=== PATIENT | female | born 1940 | race African-American/Black ===

== ENCOUNTER 2024-12-15 12:24 | Outpatient (REF) | payer MEDICARE, OTHER, SELFPAY ==
[2024-12-15 12:52] LABS: MANUAL DIFF FLAG NO
[2024-12-15 14:20] LABS: Basophils Absolute Auto 0.1 X10*3/uL (0.0-0.2); Basophils Percent Auto 0.9 % (0-2); Eosinophils Absolute Auto 0.1 X10*3/uL (0.0-0.4); Eosinophils Percent Auto 1.7 % (0-4); Hematocrit 34.6 % (37.0-47.0); Hemoglobin 11.3 g/dl (12.0-16.0); Imm Gran Abs Auto 0.02 X10*3/uL (0.00-0.03); Imm Gran Pct Auto 0.3 % (0.0-0.4); Lymphocytes Absolute Auto 1.5 X10*3/uL (1.2-4.9); Lymphocytes Percent Auto 23.4 % (20-40); Mean Corpuscular HGB Conc 32.7 g/dl (31.0-35.0); Mean Corpuscular Volume 91.8 fL (80.0-98.0); Mean Platelet Volume 11.4 fL (9.4-12.3); Monocytes Absolute Auto 0.6 X10*3/uL (0.1-1.2); Monocytes Percent Auto 9.7 % (2-11); Neutrophils Absolute Auto 4.1 x10*3/uL (2.0-8.3); Platelet Count 195 X10*3/uL (160-400); Red Blood Count 3.77 X10*6/uL (4.20-5.50); Red Cell Distribution Width 14.6 % (11.0-16.0); White Blood Count 6.4 X10*3/uL (4.8-10.8)
[2024-12-15 14:49] LABS: Anion Gap 9 (12-20); Blood Urea Nitrogen 23 mg/dL (9-16); Calcium 8.9 mg/dL (8.4-10.2); Carbon Dioxide 28 mmol/L (22-29); Chloride 110 mmol/L (96-108); Estimated Glomerular Filt Rate > 60; Glucose Random 125 mg/dL (60-115); Potassium 4.4 mmol/L (3.3-5.1); Sodium 143 mmol/L (135-145)
--- OUTSIDE RECORDS SUMMARY | 2024-12-15 14:50 | XMS_ITS | Clinical Summary ---
Author Organization [facility] Address [address] [place] [address] Care Team Providers Care Seamless Tube Roller Name Role Phone Teresa Pineda MD Primary Care Provider + Social History Tobacco Use Types Packs/Day Years Used Date Smoking Tobacco: Never Assessed Sex and Gender Information Value Date Recorded Sex Assigned at Not on file Gender Identity Not on file Sexual Orientation Not on file Plan of Treatment Health Maintenance Due Date Last Done Comments COVID-19 Vaccine (#1) 1939 Depression Screening 1951 Preventative Health Evaluation 1957 DTap / Tdap / Td (1 - Tdap) 1958 Shingrix-Zoster Vaccine (1 of 2) 1989 Fall Risk Assessment 2004 Osteoporosis Screening (DEXA Scan) 2004 RSV Adult > 60+ Yrs or (1 - 1-dose 75+ series) 2014 Pneumococcal Vaccine (3 of 3 - PPSV23 or PCV20) 06/08/2020 06/08/2015, 05/08/2003 Influenza Vaccine (Season Ended) 2025 04/04/2020, 05/29/2017, 04/11/2016, Additional history exists Hepatitis B Vaccines Aged Out No long er eligible based on patient's age to complete this topic RSV Ped < 20 months Aged Out No longe r eligible based on patient's age to complete this topic Care Teams Seamless Tube Roller Relationship Specialty Start Date End Date Teresa Pineda MD [address] [phone] PCP - General Internal Medicine 11/08/20
[2024-12-15 14:59] LABS: Erythrocyte Sedimentation Rate 7 MM/HR (0-20)
== END 2024-12-15 12:25 | disposition home or self-care (01) ==
LOC: HO.LAB 12:24
PROVIDERS: PCP Internal Medicine; Visit Provider Psychiatry & Neurology Neurology
DX: M31.6 Other giant cell arteritis (principal)
CPT/HCPCS: 36415; 80048; 85025; 85652

== ENCOUNTER 2025-01-24 13:43 | Outpatient (AMB) | payer MEDICARE, OTHER, SELFPAY ==
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
[2025-01-24 14:25] VITALS: BP 150/76; PULSE 63
--- OUTSIDE RECORDS SUMMARY | 2025-01-24 14:25 | XMS_ITS | Clinical Summary ---
Author Organization [facility] Address [address] [place] [address] Care Team Providers Care Environmental Advisor Name Role Phone Teresa Pineda MD Primary [...] or PCV20) 06/08/2020 06/08/2015, 05/08/2003 Influenza Vaccine (#1) 2025 0, 05/29/2017, 04/11/2016, Additional history exists Hepatitis B Vaccines Aged Out No long er eligible based on patient's age to complete this topic RSV Ped < 20 months Aged Out No longe r eligible based on patient's age to complete this topic Care Teams Environmental Advisor Relationship Specialty Start Date End Date Teresa Pineda MD [address] [phone] PCP - General Internal Medicine 11/08/20
--- OUTSIDE RECORDS SUMMARY | 2025-01-24 14:25 | XMS_ITS | Clinical Summary ---
Author Organization [address] [facility] Address [address] [place] [address] Phone Care Team Providers Care Dryerman/Woman Name Role Phone Agus Dunbar MD Primary Care Provider [phone] Allergies Active Allergy Reactions Criticality Noted Date Comments Amoxicillin Other 08/01/2005 Chest pain Metronidazole 07/08/2024 Metronidazole Hcl Diarrhea 08/01/2005 Cramping, mouth sores - to pills only - no issues with metrogel Naproxen Sodium 04/01/2006 Oxycodone-Acetaminophen 07/06/2006 Other Reaction(s): Rash/Dermatitis Penicillin V Potassium Other 08/01/2005 Chest pain Sulfamethoxazole-Trimethoprim 2005 Other Reaction(s): Hives/Urticaria Medications ACETAMINOPHEN ORAL Take by mouth. As needed Active diclofenac (VOLTAREN) 1 % topical gel Apply 2 g topically daily as needed (pain). 3 Active lancing device (BD LANCET DEVICE MIS) Use to check blood sugars daily for DM, E11.9 2 Active latanoprost (Xalatan) 0.005 % ophthalmic solution 1 Drop at bedtime.Both eyes Active metFORMIN (GLUCOPHAGE) 500 mg tablet Take 1 tablet (500 mg total) by mouth 1 (one) time each day with breakfast. 3 Active UNABLE TO FIND Apply 1 Device topically 1 (one) time. Mastectomy bra 2 Active amLODIPine (NORVASC) 5 mg tabletIndications :Essential (primary) hypertension TAKE 1 TABLET BY MOUTH EVERY DAY 90 tablet 1 5 Active lisinopril (PRINIVIL,ZESTRIL ) 40 mg tabletIndications :Essential (primary) hypertension Take 1 tablet (40 mg total) by mouth 1 (one) time each day. 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 200 each 1 5 Active timolol (TIMOPTIC) 0.5 % ophthalmic solution 5 Active famotidine (PEPCID) 20 mg tablet TAKE 1 TABLET BY MOUTH TWICE A DAY 180 tablet 1 5 Active OneTouch Ultra Test test strip USE TO TEST BLOOD SUGARS TWICE A DAY 100 strip 2 5 Active Active Problems Problem Noted Date Diagnosed Date Anemia 03/31/2024 Decreased appetite 03/31/2024 Diverticulosis 03/31/2024 Hemorrhoids 03/31/2024 Kidney stones 03/31/2024 Weight loss 03/31/2024 Cervical radiculopathy 12/11/2020 Overview (03/31/2024): Evaluation with [facility] by Dr. Sanchez 11/2020; physical therapy and traction, oral medication trial prior to considering surgical intervention Allergic rhinitis 10/19/2018 Bilateral nephrolithiasis 07/20/2017 Overview (03/31/2024): Right kidney: three 4mm stones. Left Kidney 5-6 stones 4-7mm. Largest is 7mm left lower kidney. ESWL offered 05/30/17 by [facility] (Keven ROCHE), pt declined. More stone issues 10/2019, ED visit 03/2020 Gross hematuria, 7mm right renal stone [facility] visit 01/16/2021 Ptosis, left eyelid 08/15/2016 Grief 04/11/2016 Colon polyp 09/05/2014 Left-sided trigeminal neuralgia 05/09/2011 Microalbuminuria 10/10/2010 IBS (irritable bowel syndrome) 07/15/2010 Spinal stenosis in cervical region 06/19/2010 Overview (03/31/2024): MRI 10/27/2008:Mild central spinal stenosis at multiple levels. Minimal cord compression at C5-6. Moderate osteophytic narrowing of both C6 foramina; mild to moderate narrowing of the left C7 foramen. C6-7 right lateral disc herniation-osteophyte complex causing severe right C7 foraminal stenosis GERD (gastroesophageal reflux disease) 0 H. pylori infection 07/05/2009 Overview (03/31/2024): PCN allergic. 12/2015 clarithromycin 500 bid, flagyl 500 bid, omeprazole 20 bid x14d Hyperlipidemia 10/01/2005 Glaucoma 10/01/2005 Overview (03/31/2024): Dr. Ponce Essential hypertension, benign 08/01/2005 Type 2 diabetes mellitus wit h renal manifestations ([facility] V24, [facility] V28) 08/01/2005 Encounters Date Type Department Care Team Description 11/16/2024 11:00 AM EDT [facility] [address] [place] [address] Agus Dunbar MD Type 2 diabetes mellitus with diabetic microalbuminuria, without long-term current use of insulin ([facility] V24, [facility] V28) (Primary Dx); Essential hypertension, benign; Chronic nonintractable headache, unspecified headache type; Immunization due 11/09/2024 Telephone Pediatrics - [address] [address] Agus Dunbar MD Medication Problem from Last 3 Months Immunizations Name Administration Dates Next Due Influenza Quadravalent, MDCK , 0.5ml, with preservative (Flucelvax) 6mo and older 05/29/2017 Influenza trivalent, 0.5mL ( Fluad) 65yo and older 05/11/2024 Influenza trivalent, 0.5mL ( Fluzone High-dose) 65yo and older 04/17/2022,03/18/2021,04/04/2020,05/07 Influenza trivalent, with pr eservative (Fluzone; Afluria) 6mo and older 04/11/2016,03/16/2015,04/14/2014,02/28,03/08/2012,03/12/2011,04/03/2010 ,03/23/2009,05/11/2008,03/16/2007,03/22,05/02/2005 Moderna SARS-CoV-2 COVID-19, mRNA, LNP-S, preservative free 12/27/2021,06/05/2021,11/14/2020,10/16 Pneumococcal conjugate 13 va lent (Prevnar 13, PCV13) 2mo and older 06/08/2015 Pneumococcal conjugate 20 va lent (Prevnar 20, PCV 20) 2mo and older 11/16/2024 Pneumococcal polysaccharide 23 valent (Pneumovax 23) 2yo and older 05/08/2003 Td Tetanus diptheria (Tdvax) 7yo and older 08/23/2008 Tdap Tetanus diptheria acell ular pertussis (Boostrix; Adacel) 7yo and older 11/16/2024 Surgical History Surgery Date Site/Laterality Comments COLONOSCOPY 07/01/00 & 03/26 PROCEDURE: HISTORICAL COLONOSCOPY; COMMENT: Up to cecum, diverticulosis, repeat 2015 BREAST LUMPECTOMY 06/19/2008 PROCEDURE: HISTORICAL BREAST LUMPECTOMY; COMMENT: infil ductal, right, 9 neg axillary nodes. ESOPHAGOGASTRODUODENOSCOPY 04/16/2005 PROCEDURE: [place] EGD TRANSORAL BIOPSY SINGLE/MULTIPLE; COMMENT: gastric polyp, caprice test + (did not tolerate treatment) OTHER SURGICAL HISTORY PROCEDURE: [place] RADIAL KERATOTOMY COLONOSCOPY 09/04/14 Dr Elder PROCEDURE: HISTORICAL COLONOSCOPY; COMMENT: 2mm cecum polypectomy UPPER GASTROINTESTINAL ENDOSCOPY 03/14/16 Dr Card PROCEDURE: UPPER GI ENDOSCOPY/EXAM; COMMENT: normal PARTIAL HYSTERECTOMY 1969 PROCEDURE: NJ SUPRACERVICAL ABDL HYSTER W/WO RMVL TUBE OVARY; COMMENT: ovaries are present on sonogram 2008 BREAST BIOPSY PROCEDURE: BX BREAST; PERC NEEDLE CORE W/IMAG GUID; COMMENT: RT-HX OF RT BREAST CANCER COLONOSCOPY 08/07/2021 PROCEDURE: HISTORICAL COLONOSCOPY; COMMENT: diverticulosis Medical History Medical History Date Comments H. pylori infection 07/05/2009 DX:H. pylori infection Colon polyp 09/05/2014 DX:Colon polyp Ptosis, left eyelid 08/15/2016 DX:Ptosis, l eft eyelid Bilateral nephrolithiasis 07/20/2017 DX:Anton ateral nephrolithiasis; COMMENT: Right kidney: three 4mm stones. Left Kidney 5-6 stones 4-7mm. Largest is 7mm left lower kidney. ESWL offered 05/30/17 by [facility] ([facility]), pt declined. Microalbuminuria 10/10/2010 DX:Microalbumin uria Type 2 diabetes mellitus wit h renal manifestations (CMS/HCC V24, CMS/HCC V28) 08/01/2005 DX:Type 2 diabetes mellitus with renal manifestations ([facility]) Spinal stenosis in cervical region 06/19/2010 DX:Spinal stenosis in cervical region; COMMENT: MRI 10/27/2008:Mild central spinal stenosis at multiple levels. Minimal cord compression at C5-6. Moderate osteophytic narrowing of both C6 foramina; mild to moderate narrowing of the left C7 foramen. 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; Cytoxan/Taxotere started 10/05/06 Glaucoma 10/01/2005 DX:Glaucoma GERD (gastroesophageal reflux disease) 0 DX:GERD (gastroesophageal reflux disease) Essential hypertension, benign 08/01/2005 D X:Essential hypertension, benign Allergic rhinitis 10/19/2018 DX:Allergic rh initis Hyperlipidemia 10/01/2005 DX:Hyperlipidemi a Solitary cyst of breast DX:Solit vi cyst of breast Malignant neoplasm of breast (female), unspecified site R, '06 DX:Malignant neoplasm of radha ast (female), unspecified site; COMMENT: T1cN0 Grade 3, ER-,[place]-, HER-2/jarad neg; cytoxan taxotere x4 Anemia DX:Anemia Weight loss DX:Weight loss Decreased appetite DX:Decreased appetite Kidney stones DX:Kidney stones Depressive disorder DX:Depressiv e disorder Diverticulosis DX:Diverticulosi s Hemorrhoids DX:Hemorrhoids Anemia DX:Anemia Liver lesion DX:Liver lesion Family History Medical History Relation Name Comments Colon cancer Brother 1 brother colon c a > 70 Colon cancer Sister 1 colon ca 60's, cataract Blindness Neg Hx Glaucoma Neg Hx Macular degeneration Neg Hx Strabismus Neg Hx Relation Name Status Comments Brother 1 Alive prostate ca & a s of 69 he has colon cancer Brother 2 pancreatic canc er Brother 3 stomach CA Brother 4 Alive diabetes Father pancreatic canc er Mother Alzheimers Sister 1 Alive colon CA at age 60's Sister 2 Alive had colon cance r resected age -60 Social History Tobacco Use Types Packs/Day Years Used Date Smoking Tobacco: Never Smokeless Tobacco: Never Tobacco Cessation:Counseling Given: Not Answered Alcohol Use Standard Drinks/Week Comments No 0 (1 standard drink = 0.6 oz pur e alcohol) Comments No Sex and Gender Information Value Date Recorded Sex Assigned at Not on file Legal Sex Female 3:41 AM EST Gender Identity Not on file Sexual Orientation Not on file Obstetrics History Para Term AB IAB SAB Ectopic Multiple Livin g Live Births 15 8 4 4 7 1 1 1 4 4 Date Outcome GA Total Labor Labor/2nd/3rd Weight Sex Type Anes PTL Faith A1 A5 Name Clin IAB Ectopic Molar Molar Molar Molar SAB Term M Vag-S pont Living Term F Vag-S pont Living Term F Vag-S pont Living Term M Vag-S pont Living Last Filed Vital Signs Vital Sign Reading Time Taken Comments Blood Pressure 112/50 11/16/2024 10:54 AM EDT Pulse 76 11/16/2024 10:54 AM EDT Temperature 36.7 C (98 F) 05/28/2024 4:11 PM EST Respiratory Rate 14 09/26/2024 11:37 AM EDT Oxygen Saturation 97% 08/26/2024 10:16 AM EST Inhaled Oxygen Concentration - - Weight 47 kg (103 lb 9.6 oz) 11/16/2024 10:54 AM EDT Height 154.9 cm (5' 1 ) 09/26/2024 11:37 AM EDT Body Mass Index 19.58 09/26/2024 11:37 AM EDT Plan of Treatment Upcoming Encounters Date Type Department Care Team (Late st Contact Info) Description 01/31/2025 2:00 PM EDT [facility] [address] [place] [address] Agus Dunbar MD [address] [place] [address] Health Maintenance Due Date Last Done Comments Diabetes: Annual Foot Exam 1950 Hepatitis A Vaccines (1 of 2 - Risk 2-dose series) 1958 Zoster Vaccines (1 of 2) 1958 Hepatitis B Vaccines (1 of 3 - Risk 3-dose series) 1999 RSV Immunization Adult Patients (1 - 1-dose 75+ series) 2014 Medicare Annual Wellness Visit 04/20/2024 04/20/2023 Depression Screening 06/22/2024 04/20/2023 Diabetes: Annual Urine Albumin-Creatinine Ratio (uACR) 12/15/2024 12/16/2023 COVID-19 Vaccine (6 - Moderna risk season) 2025 07/16/2024, 12/27/2021, 06/05/2021, Additional history exists Influenza Vaccine (#1) 2025 , 04/17/2022, 03/18/2021, Additional history exists Diabetes: Blood Sugar Control Test (HGBA1C) 03/02/2025 08/30/2024, 05/11/2024, 12/14/2023, Additional history exists Diabetes: Annual GFR (Glomerular Filtration Rate) 05/11/2025 05/11/2024, 01/07/2024, 01/07/2024, Additional history exists Falls Risk Assessment 05/11/2025 05/11/2024, 023 Hypertension/CHF/CAD Annual BMP Blood Test 05/11/2025 05/11/2024, 01/07/2024, 01/07/2024, Additional history exists Social Influencers of Health Screening 05/11/2025 05/11/2024 Diabetes: Annual Retina Eye Exam 10/12/2025 10/12/2024 Osteoporosis Screening (Bone Density Screening) 11/04/2028 11/05/2023, 11/05/2023, 01/07/2018 Cholesterol Screening (Lipid Panel) 05/11/2029 05/11/2024, 12/14/2023, 12/14/2023 DTaP,Tdap,and Td Vaccines (3 - Td or Tdap) 11/16/2034 11/16/2024, 08/23/2008 Pneumococcal Vaccine: 50+ Years Completed 11/16/2024, 06/08/2015, 05/08/2003 HIB Vaccines Aged Out No longer eligi ble based on patient's age to complete this topic HPV Vaccines Aged Out No longer eligi ble based on patient's age to complete this topic IPV Vaccines Aged Out No longer eligi ble based on patient's age to complete this topic MMR Vaccines Aged Out No longer eligi ble based on patient's age to complete this topic Meningococcal ACWY Vaccine Aged Out N o longer eligible based on patient's age to complete this topic Meningococcal B Vaccine Aged Out No l onger eligible based on patient's age to complete this topic RSV Immunization Patients Under 20 months Aged Out No longer eligible based on patient's age to complete this topic Varicella Vaccines Aged Out No longer eligible based on patient's age to complete this topic Procedures Procedure Name Priority Date/Time Associated Diagnosis Comments EXTERNAL CLINICAL LAB 12/16/2024 HEMOGLOBIN A1C Routine 08/30/2024 11:33 AM EDT Type 2 diabetes mellitus with diabetic microalbuminuria, without long-term current use of insulin ([facility] V24, [facility] V28) COMPREHENSIVE METABOLIC PANEL Routine 05/11/2024 1:54 PM EST Type 2 diabetes mellitus with diabetic microalbuminuria, without long-term current use of insulin (CMS/HCC V24, CMS/[facility] V28) LIPID PANEL WITH REFLEX TO DIRECT LDL Routine 05/11/2024 1:54 PM EST Type 2 diabetes mellitus with diabetic microalbuminuria, without long-term current use of insulin ([facility] V24, [facility] V28) URINE ALBUMIN CREATININE RATIO Routine 12/16/2023 DXA BONE DENSITY STUDY 1+ SITS AXIAL SKEL Routine 11/05/2023 10:26 AM EDT Encounter for screening for osteoporosis DEPRESSION SCREENING Routine 04/20/2023 FALLS RISK ASSESSMENT Routine 04/20/2023 from Last 3 Months or Most Recently Relevant to Health Maintenance Results * External clinical lab (12/16/2024) us Provider [facility] LAB BLOOD ORDERABLES Fin al Result * (ABNORMAL) Hemoglobin A1c (08/30/2024 11:33 AM EDT) Hemoglobin A1C 7.2(H) <6.5 % LAB CHEMISTRY METHOD 08/30/2024 9:26 PM EDT [facility] Mean Bld Glu Estim. 160 mg/dL LAB CHEMISTRY METHOD 08/30/2024 9:26 PM EDT [facility] Blood Venous blood specimen / Unknown Venipuncture / Unknown 08/30/2024 11:33 AM EDT 08/30/2024 11:33 AM EDT us Agus Dunbar MD LAB BLOOD ORDERABLES Final Resu lt [facility] [address] [place] [address], [place] [phone] * Lipid panel with reflex to direct LDL (05/11/2024 1:54 PM EST) Cholesterol 170 0 - 200 mg/dL LAB CHEMISTRY METHOD 05/11/2024 6:20 PM EST [facility] Triglycerides 101 0 - 150 mg/dL LAB CHEMISTRY METHOD 05/11/2024 6:20 PM EST [facility] HDL 59 >=40 mg/dL LAB CHEMISTRY METHOD 05/11/2024 6:20 PM [facility] LDL Calculated 91 0 - 100 mg/dL LAB CHEMISTRY METHOD 05/11/2024 6:20 PM [facility] VLDL Cholesterol [place] 20.2 mg/dL LAB CHEMISTRY METHOD 05/11/2024 6:20 PM [facility] Non HDL Chol. (LDL+VLDL) 111 <145 mg/dL LAB CHEMISTRY METHOD 05/11/2024 6:20 PM [facility] Chol/HDL Ratio 2.9 0.0 - 4.4 LAB CHEMISTRY METHOD 05/11/2024 6:20 PM [facility] Blood Venous blood specimen / Unknown Venipuncture / Unknown 05/11/2024 1:54 PM EST 05/11/2024 1:54 PM EST us Agus Dunbar MD LAB BLOOD ORDERABLES Final Resu lt [facility] [address] [place] [address], [place] [phone] * (ABNORMAL) Comprehensive metabolic panel (05/11/2024 1:54 PM EST) Sodium 141 133 - 145 mmol/L LAB CHEMISTRY METHOD 05/11/2024 6:20 PM [facility] Potassium 4.0 3.5 - 5.5 mmol/L LAB CHEMISTRY METHOD 05/11/2024 6:20 PM [facility] Chloride 107 96 - 110 mmol/L LAB CHEMISTRY METHOD 05/11/2024 6:20 PM [facility] CO2 29 21 - 32 mmol/L LAB CHEMISTRY METHOD 05/11/2024 6:20 PM [facility] Anion Gap 5 3 - 11 LAB CHEMISTRY METHOD 05/11/2024 6:20 PM [facility] Glucose 126(H) 70 - 100 mg/dL LAB CHEMISTRY METHOD 05/11/2024 6:20 PM [facility] BUN 18 5 - 25 mg/dL LAB CHEMISTRY METHOD 05/11/2024 6:20 PM [facility] Creatinine 0.72 0.50 - 1.10 mg/dL LAB CHEMISTRY METHOD 05/11/2024 6:20 PM [facility] eGFR 82 >=60 mL/min/1. 73m2 LAB CHEMISTRY METHOD 05/11/2024 6:20 PM [facility] Comment:Calculation based on the Chronic Kidney Disease Epidemiology Collaboration (CKD-EPI) equation refit without adjustment for race. BUN/Creatinine Ratio 25.0 LAB CHEMISTRY METHOD 05/11/2024 6:20 PM [facility] Calcium 9.2 8.5 - 10.5 mg/dL LAB CHEMISTRY METHOD 05/11/2024 6:20 PM [facility] AST (SGOT) 18 10 - 42 unit/L LAB CHEMISTRY METHOD 05/11/2024 6:20 PM [facility] ALT (SGPT) 15 10 - 60 unit/L LAB CHEMISTRY METHOD 05/11/2024 6:20 PM [facility] Alkaline Phosphatase 90 42 - 121 unit/L LAB CHEMISTRY METHOD 05/11/2024 6:20 PM [facility] Total Protein 6.9 6.0 - 8.0 g/dL LAB CHEMISTRY METHOD 05/11/2024 6:20 PM [facility] Albumin 3.6 3.2 - 5.0 g/dL LAB CHEMISTRY METHOD 05/11/2024 6:20 PM [facility] Total Bilirubin 0.5 0.0 - 1.4 mg/dL LAB CHEMISTRY METHOD 05/11/2024 6:20 PM [facility] Blood Venous blood specimen / Unknown Venipuncture / Unknown 05/11/2024 1:54 PM EST 05/11/2024 1:54 PM EST Agus Dunbar MD LAB BLOOD ORDERABLES Final Resu lt [facility] [address] [place] [address], * Urine Albumin Creatinine Ratio (12/16/2023) Urine Albumin Creatinine Ratio abstracted Historical Provider HEALTH MAINTENANCE Final Result * DXA BONE DENSITY STUDY 1+ SITS AXIAL SKEL (11/05/2023 10:26 AM EDT) Anatomical Region Laterality Modality Bone Densitometr y 04/20/2023 4:34 PM EDT Narrative 11/05/2023 8:11 PM EDT BONE DENSITY SCAN (DEXA) FINDINGS: Lumbar Spine T-score is 0.0. (SD relative to 20-29 y/o adult) Z-score is 2.3. (SD relative to age matched peers) This is considered normal by WHO criteria. Left Hip T-score is -1.0. Z-score is 0.5. This is considered normal by WHO criteria. Comparison: 01/07/2018. No statistically significant change in bone mineral density. IMPRESSION: IMPRESSION: Normal bone mineral density by WHO criteria. The [facility] Department of Internal Medicine recommends using National Osteoporosis Foundation (NOF) guidelines in treatment decisions related to osteoporosis. NOF guidelines suggest considering treatment for postmenopausal women and men aged 50 or older presenting with the following: History of hip or vertebral fracture. T-score = -2.5 (DXA) at the femoral neck, total hip, or spine, after appropriate evaluation to exclude secondary causes. Low bone mass (T-score between -1.0 and -2.5 at the femoral neck or spine) AND a 10-year probability of a hip fracture = 3% OR a 10-year probability of a major osteoporosis-related fracture = 20% based on the [place]-adapted WHO algorithm Please note that all treatment decisions require clinical judgment and consideration of individual patient factors, including patient preferences, co-morbidities, previous drug use, risk factors not captured in the FRAX model (e.g., frailty, falls, vitamin D deficiency, increased bone turnover, interval significant decline in bone density) and possible under- or over-estimation of fracture risk by FRAX. Optional alternative screening schedule based on sayda Cervantes al., [facility] July 10, 2011 for patients with osteopenia (based on hip BMD T-score) is as follows: * advanced osteopenia (T scores -2.00 to -2.49), BMD testing every year * moderate osteopenia (T scores -1.50 to -1.99), BMD testing every 5 years mild osteopenia or normal BMD (T scores -1.50 and higher), BMD testing every 15 years Procedure Note Anabel Cherry MD - 02/08/2024 BONE DENSITY SCAN (DEXA) FINDINGS: Lumbar Spine T-score is 0.0. (SD relative to 20-29 y/o adult) Z-score is 2.3. (SD relative to age matched peers) This is considered normal by WHO criteria. Left Hip T-score is -1.0. Z-score is 0.5. This is considered normal by WHO criteria. Comparison: 01/07/2018. No statistically significant change in bonemineral density. IMPRESSION: IMPRESSION: Normal bone mineral density by WHO criteria. The [facility] Department of Internal Medicine recommendsusing National Osteoporosis Foundation (NOF) guidelines in treatment decisions related toosteoporosis. NOF guidelines suggest considering treatment for postmenopausal women and menaged 50 or older presenting with the following: History of hip or vertebral fracture. T-score = -2.5 (DXA) at the femoral neck, total hip, or spine, afterappropriate evaluation to exclude secondary causes. Low bone mass (T-score between -1.0 and -2.5 at the femoral neck or spine)AND a 10-year probability of a hip fracture = 3% OR a 10-year probability of a majorosteoporosis-related fracture = 20% based on the [place]-adapted WHO algorithm Please note that all treatment decisions require clinical judgment andconsideration of individual patient factors, including patient preferences, co- morbidities,previous drug use, risk factors not captured in the FRAX model (e.g., frailty, falls, vitaminD deficiency, increased bone turnover, interval significant decline in bone density) andpossible under- or over-estimation of fracture risk by FRAX. Optional alternative screening schedule based on tabitha Cervantes., NEJMJanuary 2011 for patients with osteopenia (based on hip BMD T-score) is as follows: * advanced osteopenia (T scores -2.00 to -2.49), BMD testing every year * moderate osteopenia (T scores -1.50 to -1.99), BMD testing every 5years mild osteopenia or normal BMD (T scores -1.50 and higher), BMD testingevery 15 years Result [facility] Nena Smith NP IMG DXA PROCEDURES Final Resul t * Falls Risk Assessment (04/20/2023) [facility] Falls Risk Assessment abstracted Result [facility] Historical Provider HEALTH MAINTENANCE Final Result * Depression Screening (04/20/2023) [facility] Depression Screening abstracted Result [facility] Historical Provider HEALTH MAINTENANCE Final Result from Last 3 Months or Most Recently Relevant to Health Maintenance Insurance MEDICARE [facility] [employer] Care Teams Dryerman/Woman Relationship Specialty Start Date End Date Agus Dunbar MD [address] [place] [address] [place] [address] PCP - General Internal Medicine 03/04/21
[2025-01-24 14:26] VITALS: BP 152/72; PULSE 65
== END 2025-01-24 14:43 | disposition home or self-care (01) ==
LOC: HO.HSM 13:44
PROVIDERS: PCP Internal Medicine; Visit Provider Registered Nurse
DX: G44.209 Tension-type headache, unspecified, not intractable (principal); R42 Dizziness and giddiness
CPT/HCPCS: 99214

== ENCOUNTER → 2025-01-24 13:43 | Outpatient (BNVA) | payer MEDICARE, OTHER, SELFPAY | PROVIDERS: PCP Internal Medicine; Visit Provider Registered Nurse | DX: G44.209 Tension-type headache, unspecified, not intractable (principal) | CPT/HCPCS: 99212 ==